=== PATIENT | female | born 1935 | race Asian ===

== ENCOUNTER → 2017-11-09 | Outpatient (CLI) | payer MEDICARE, OTHER ==
[~2017-11-09] VITALS: Ht 157.5 cm; Wt 47.0 kg
[~2017-11-09] MED LIST: ALEN70TA48 PO; ASCO500 PO; ASPI81 PO; MULT1TAB70 PO; TELM40 PO; VITAD1000 PO; [UNRECOGNIZED DRUG - CODE] PO
[2017-11-09 12:46] VITALS: BP 131/68
[2017-11-09 12:47] VITALS: BP 131/68
== END | disposition home or self-care (01) ==
LOC: SRCNTR 12:25
PROVIDERS: ATTEND Internal Medicine Critical Care Medicine
DX: R91.1 Solitary pulmonary nodule (principal); I10 Essential (primary) hypertension; M81.0 Age-related osteoporosis without current pathological fracture
CPT/HCPCS: G0463

== ENCOUNTER → 2017-12-29 | Outpatient (CLI) | payer MEDICARE, OTHER ==
[~2017-12-29] VITALS: Ht 157.5 cm; Wt 46.0 kg
[~2017-12-29] MED LIST changes: +CALC-960 PO; -[UNRECOGNIZED DRUG - CODE] PO
[2017-12-29 13:28] VITALS: BP 124/62
== END | disposition home or self-care (01) ==
LOC: SRCNTR 13:00
PROVIDERS: ATTEND Internal Medicine Critical Care Medicine
DX: R91.1 Solitary pulmonary nodule (principal); I10 Essential (primary) hypertension; M81.0 Age-related osteoporosis without current pathological fracture
CPT/HCPCS: G0463

== ENCOUNTER → 2018-06-13 | Outpatient (CLI) | payer MEDICARE, OTHER ==
[~2018-06-13] VITALS: Ht 157.5 cm; Wt 56.0 kg
[2018-06-13 13:53] VITALS: BP 133/74
== END | disposition home or self-care (01) ==
LOC: SRCNTR 13:46
PROVIDERS: ATTEND Internal Medicine Critical Care Medicine
DX: R91.8 Other nonspecific abnormal finding of lung field (principal); I10 Essential (primary) hypertension; M81.0 Age-related osteoporosis without current pathological fracture
CPT/HCPCS: G0463

== ENCOUNTER → 2018-11-01 | Outpatient (CLI) | payer MEDICARE, OTHER ==
[~2018-11-01] VITALS: Ht 157.5 cm; Wt 48.5 kg
[~2018-11-01] MED LIST changes: +ALEN70TA10 PO; -ALEN70TA48 PO
[2018-11-01 10:00] VITALS: BP 123/72
== END | disposition home or self-care (01) ==
LOC: SRCNTR 09:51
PROVIDERS: ATTEND Internal Medicine Critical Care Medicine
DX: I10 Essential (primary) hypertension (principal); M81.0 Age-related osteoporosis without current pathological fracture
CPT/HCPCS: G0463

== ENCOUNTER → 2018-12-01 | Outpatient (CLI) | payer MEDICARE, OTHER ==
[~2018-12-01] VITALS: Ht 157.5 cm; Wt 49.0 kg
[2018-12-01 14:37] VITALS: BP 125/76
== END | disposition home or self-care (01) ==
LOC: SRCNTR 14:11
PROVIDERS: ATTEND Internal Medicine Critical Care Medicine
DX: I10 Essential (primary) hypertension (principal); M81.0 Age-related osteoporosis without current pathological fracture
CPT/HCPCS: G0463

== ENCOUNTER → 2019-07-26 | Outpatient (CLI) | payer MEDICARE, OTHER ==
[~2019-07-26] VITALS: Ht 157.5 cm; Wt 47.0 kg
[~2019-07-26] MED LIST changes: +CHOL100018 PO; -VITAD1000 PO
[2019-07-26 09:53] VITALS: BP 140/62
== END | disposition home or self-care (01) ==
LOC: SRCNTR 09:51
PROVIDERS: ATTEND Internal Medicine Critical Care Medicine
DX: I10 Essential (primary) hypertension (principal); M81.0 Age-related osteoporosis without current pathological fracture; E04.1 Nontoxic single thyroid nodule; Z79.82 Long term (current) use of aspirin
CPT/HCPCS: G0463

== ENCOUNTER → 2019-09-13 | Outpatient (CLI) | payer MEDICARE, OTHER ==
[~2019-09-13] VITALS: Ht 157.5 cm; Wt 47.0 kg
[~2019-09-13] MED LIST changes: +ASPI-728 PO; -ASPI81 PO
[2019-09-13 12:17] VITALS: BP 150/79
== END | disposition home or self-care (01) ==
LOC: SRCNTR 12:12
PROVIDERS: ATTEND Internal Medicine Critical Care Medicine
DX: R91.1 Solitary pulmonary nodule (principal); I10 Essential (primary) hypertension; M81.0 Age-related osteoporosis without current pathological fracture; E04.2 Nontoxic multinodular goiter; Z90.710 Acquired absence of both cervix and uterus; Z98.51 Tubal ligation status; Z79.82 Long term (current) use of aspirin; Z79.899 Other long term (current) drug therapy
CPT/HCPCS: G0463

== ENCOUNTER → 2020-09-23 | Outpatient (CLI) | payer MEDICARE, OTHER ==
[~2020-09-23] VITALS: Ht 157.5 cm; Wt 46.0 kg
[~2020-09-23] MED LIST changes: -ALEN70TA10 PO; +ALEN70TA65 PO; +MULT-660 PO; -MULT1TAB70 PO
[2020-09-23 11:33] VITALS: BP 156/79
== END | disposition home or self-care (01) ==
LOC: SRCNTR 11:14
PROVIDERS: ATTEND Internal Medicine Critical Care Medicine
DX: E04.2 Nontoxic multinodular goiter (principal); I10 Essential (primary) hypertension; M81.0 Age-related osteoporosis without current pathological fracture; R91.1 Solitary pulmonary nodule
CPT/HCPCS: G0463

== ENCOUNTER → 2020-11-04 | Outpatient (CLI) | payer MEDICARE, OTHER ==
[~2020-11-04] VITALS: Ht 152.4 cm; Wt 45.2 kg
[~2020-11-04] MED LIST changes: +ASPI-1450 PO; -ASPI-728 PO
[2020-11-04 10:51] VITALS: BP 147/77
== END | disposition home or self-care (01) ==
LOC: SRCNTR 10:27
PROVIDERS: ATTEND Internal Medicine Critical Care Medicine
DX: I10 Essential (primary) hypertension (principal); M81.0 Age-related osteoporosis without current pathological fracture; E04.2 Nontoxic multinodular goiter; R91.8 Other nonspecific abnormal finding of lung field
CPT/HCPCS: G0463